=== PATIENT | female | born 1955 | race Two or more races ===

== ENCOUNTER 2016-11-22 02:14 | Emergency (ER) | payer MEDICARE, MEDICAID ==
[~2016-11-22 02:14] MED LIST: ADVAIR 25028 BLISTE1 PO; ADVAIR 25028 BLISTER INH; ALBUTEROL SULF8.5 GM IH; ALBUTEROL0.63 MG/1 IH; ALBUTEROL0.63 MG/3 IH; ALBUTEROL2.5 MG/0.1 IH; CEFDINIR300 M1 PO; DICLOFENAC POTA50 M1; DICLOFENAC SODI75 M2 PO; DIOVAN; FLEXERIL10 MG PO; IBU-200200 MG PO; IBUPROFEN200 M1 PO; LEVAQUIN500 MG PO; LISINOPRIL; LISINOPRIL-HCT1 EAC2 PO; LORATADINE10 M2 PO; LORTAB 5/500 TA1 TAB PO; MOTRIN800 MG PO; NAPROSYN500 M1 PO; NORCO 5/325 TAB1 TAB PO; PREDNISONE10 M1 PO; PREDNISONE20 MG PO; PRILOSEC20 M1 PO; PROVENTIL HFA6.7 G1 INH; SKELAXIN800 M3 PO; TAMIFLU75 MG/CAP PO; TYLENOL325 MG PO; VENTOLIN17 GM; ZITHROMAX250 M1 PO; ZITHROMAX250MG Z-PAK PO
[2016-11-22] MEDS ORDERED: CYCLOBENZAPRINE5 M1 PO (02:41)
[2017-06-09] MEDS ORDERED: FLONASE ALLERG9.9 ML (16:05)
[2017-06-09] MEDS ORDERED: SYMBICORT 160-1 PUFF INH (16:06)
[2017-06-09] MEDS ORDERED: NORCO 5-325 TA1 EACH PO (17:16)
== END 2016-11-22 04:21 ==
LOC: EDMED 02:14
DX: S39.012A Strain of muscle, fascia and tendon of lower back, initial encounter (principal); M51.9 Unspecified thoracic, thoracolumbar and lumbosacral intervertebral disc disorder; I10 Essential (primary) hypertension; Z79.899 Other long term (current) drug therapy; Z90.710 Acquired absence of both cervix and uterus; Z98.890 Other specified postprocedural states; Z88.5 Allergy status to narcotic agent; X58.XXXA Exposure to other specified factors, initial encounter
CPT/HCPCS: J1885

== ENCOUNTER 2016-12-03 16:07 | Emergency (ER) | payer MEDICARE, MEDICAID ==
[~2016-12-03 16:07] MED LIST changes: +CYCLOBENZAPRINE5 M1 PO
[2016-12-03] MEDS ORDERED: TYLENOL325 M2 PO (18:22)
[2016-12-03] MEDS ORDERED: MUCINEX COLD-F177 M1 PO (18:23)
[2016-12-03 20:12] LABS: BASO % 0.5 % (0-2); BASO ABSOLUTE COUNT 0.1 tho/cmm (0.0-0.2); EOSINOPHIL ABSOLUTE COUNT 0.4 tho/cmm (0.0-0.7); HCT-HEMATOCRIT 43.5 % (34.0-49.0); HGB-HEMOGLOBIN 14.4 gm/dl (12.0-15.5); IMMATURE GRANULOCYTES ABSOLUTE 0.03 tho/cmm (0-0.03); IMMATURE GRANULOCYTES PERCENT 0.3 % (0-0.3); LYMPH % 35.5 % (20-45); LYMPH ABSOLUTE COUNT 3.7 tho/cmm (0.8-4.5); MCH (MEAN CORPUSCULAR HGB) 31.4 pg (28.0-32.0); MCHC MEAN CORPUSCULAR HGB CONC 33.1 % (32.0-36.0); MEAN PLATELET VOLUME 10.1 cmc (9.4-12.4); MONO % 9.1 % (0-12); MONOCYTE ABSOLUTE COUNT 0.9 tho/cmm (0.0-1.2); NEUTROPHIL ABSOLUTE COUNT 5.3 tho/cmm (1.6-8.0); NEUTROPHIL-AUTOMATED 5.3 tho/cmm (1.6-8.0); NEUTROPHILS % 50.6 % (40-80); PLATELET COUNT 299 tho/cmm (150-450); RED BLOOD COUNT 4.58 mil/cmm (4.00-5.20); RED CELL DISTRIBUTION WIDTH 14.1 % (12.4-16.4); WHITE BLOOD COUNT 10.4 tho/cmm (4.0-10.0)
[2016-12-03 20:26] LABS: ALB/GLOB RATIO 0.8 (0.8-2.0); ALBUMIN 3.4 g/dl (3.5-5.0); ALKALINE PHOSPHATASE 99 U/L (33-138); ALT/SGPT 38 U/L (12-78); ANION GAP 12 mmol/L (0-20); AST/SGOT 25 U/L (10-40); BILIRUBIN,TOTAL 0.3 mg/dl (0-1.5); BLOOD UREA NITROGEN 20 mg/dl (6-24); CALCIUM 9.2 mg/dl (8.5-10.5); CARBON DIOXIDE-VENOUS 26 mmol/L (22-32); CHLORIDE 106 mmol/l (96-110); CREATININE 0.78 mg/dl (0.50-1.10); GLUCOSE 111 mg/dL (70-110); SODIUM 140 mmol/L (135-145); eGFR VALUE FOR BLACK >90 mL/Min
[2016-12-03] MEDS ORDERED: PREDNISONE20 M1 PO (20:43)
[2016-12-03] MEDS ORDERED: ALBUTEROL2.5 MG/0.1 (20:43)
[2016-12-03] MEDS ORDERED: ZITHROMAX250 M1 PO (20:43)
[2017-06-09] MEDS ORDERED: FLONASE ALLERG9.9 ML (16:05)
[2017-06-09] MEDS ORDERED: SYMBICORT 160-1 PUFF INH (16:06)
[2017-06-09] MEDS ORDERED: NORCO 5-325 TA1 EACH PO (17:16)
== END 2016-12-03 21:00 ==
LOC: EDMED 16:07
PROVIDERS: Nurse Practitioner Family
DX: J45.909 Unspecified asthma, uncomplicated (principal); I10 Essential (primary) hypertension; Z88.8 Allergy status to other drugs, medicaments and biological substances